=== PATIENT | male | born 1990 | race African-American/Black ===

== ENCOUNTER 2016-10-10 19:55 | Emergency (ER) | payer MEDICAID, OTHER ==
[~2016-10-10] VITALS: Ht 180.3 cm; Wt 88.5 kg
[2016-10-10 19:56] VITALS: Ht 180.3 cm; Wt 88.5 kg
--- NOTE | 2016-10-10 22:03 | ERD ---
ER Documentation Chief Complaint Date/Time DATE: 10/10/16 TIME: 22:02 Chief Complaint cough x 2 weeks HPI 22-year-old male comes in with a cough for the past 2 weeks. Patient states that is slightly productive with yellow sputum, no hemoptysis, chest pain or shortness of breath. Denies fevers or chills. He states that initially started with nasal congestion, rhinorrhea and sore throat. Patient reports positive sick contacts at home. Denies recent travel. ROS All systems reviewed and are negative except as per history of present illness. Medications Home Meds Active Scripts Guaifenesin/Codeine Phosphate (CHERATUSSIN AC SYRUP) 118 Ml Liquid, 5 ML PO Q4H Y for COUGH, #118 ML Prov:ZION BUCIO PA-C 10/10/16 Benzonatate* (Tessalon Perle*) 100 Mg Capsule, 100 MG PO Q8H Y for COUGH, #30 CAP Prov:ZION BUCIO PA-C 10/10/16 Amoxicillin/Potassium Clav (Amox-Clav 875-125 mg Tablet) 875-125 mg Tab, 1 TAB PO BID for 7 Days, #14 TAB Prov:ZION BUCIO PA-C 10/10/16 Allergies Allergies: Coded Allergies: No Known Drug Allergies (Verified Allergy, Mild, 10/10/16) PMhx/Soc Medical and Surgical Hx: pt denies Medical Hx, pt denies Surgical Hx Hx Alcohol Use: No Hx Substance Use: No Hx Tobacco Use: No Smoking Status: Former smoker Physical Exam Vitals Vital Signs Date Time Temp Pulse Resp B/P Pulse Ox O2 Delivery O2 Flow Rate FiO2 10/10/16 23:39 98.8 66 16 115/60 97 Room Air 10/10/16 19:56 98.0 79 20 127/61 97 Physical Exam General: Well-developed, well-nourished. The patient appears in no acute distress. HEENT: Head is normocephalic, atraumatic. No scleral icterus. TMs normal, oropharynx is clear. Neck: Supple. Nontender. Lungs: Clear to auscultation. Normal air movement. Heart: Regular rate and rhythm. S1 and S2 are normal. No murmurs, gallops, or rubs. Abdomen: Nondistended. Extremities: No clubbing or cyanosis. Moving extremities x 4. No weakness. Neurologic: Alert and oriented 3. No focal deficits. Normal speech and gait. Skin: Normal turgor. No rash or lesions. Results 24 hrs DIAGNOSTIC IMAGING REPORT Patient: HEYDI CALL : 1990 Age: 25 Sex: M MR #: [id number] DOS: 10/10/16 2105 Ordering MD: ZION BUCIO PA-C Location: [facility] Room/Bed: PROCEDURE: XR Chest. CLINICAL INDICATION: Cough for 2 weeks. TECHNIQUE: Portable AP view of the chest was obtained. COMPARISON: None. FINDINGS: The cardiomediastinal silhouette is within upper normal limits. The lungs are clear. There is no evidence for pleural effusion, pneumothorax or pulmonary vascular congestion. The osseous structures are intact with no evidence for acute abnormality. RPTAT:HJJR IMPRESSION: No evidence for acute intrathoracic pathology. Physician Francesco Date Time Electronically viewed and signed by Vladimir Shultz Physician on 10/10/2016 23:21 JR/ CC: ZION BUCIO PA-C Procedures/MDM The patient is a 25-year-old male who comes in with an acute upper respiratory infection, versus acute bronchitis. Patient states that he has had a productive cough for approximately 2 days, chest x-ray was performed there is no evidence of pneumonia. The patient has a differential diagnosis of a viral upper respiratory infection, bacterial upper respiratory infection, bronchitis, pneumonia, pharyngitis, laryngitis, epiglottitis, croup, pneumonia. Patient has a normal pulmonary examination, clear breath sounds, normal pulse oximetry, with no corrective measures needed at this time. Fluids, rest, antipyretics were encouraged. Departure Diagnosis: Primary Impression: Cough Condition: Good ZION BUCIO PA-C Oct 10, 2016 22:03
--- NOTE | 2016-10-10 23:21 | RADRPT ---
PROCEDURE: XR Chest. CLINICAL INDICATION: Cough for 2 weeks. TECHNIQUE: Portable AP view of the chest was obtained. COMPARISON: None. FINDINGS: The cardiomediastinal silhouette is within upper normal limits. The lungs are clear. There is no e vidence for pleural effusion, pneumothorax or pulmonary vascular congestion. The osseous structures are intact with no evidence for acute abnormality. RPTAT:HJJR IMPRESSION: No evidence for acute intrathoracic pathology. Physician Francesco Date Time Electronically viewed and signed by Physician Francesco on 10/10/2016 23:21 JR/
[2016-10-10] MEDS ORDERED: AMOX1TAB10 PO (23:25)
[2016-10-10 23:39] VITALS: BP 115/60; PULSE 66; RESP 16; TEMP 98.8
[2016-10-10] MEDS ORDERED: BENZ100C70 PO (23:41)
[2016-10-10] MEDS ORDERED: GUAI118L22 PO (23:41)
== END 2016-10-10 23:43 | disposition home or self-care (01) ==
LOC: FTE 19:55
DX: R05 Cough (principal); Z87.891 Personal history of nicotine dependence
CPT/HCPCS: 71010; Z7502